=== PATIENT | male | born 1955 ===

== ENCOUNTER 2016-11-28 11:37 | Emergency (ER) | payer BC ==
[2016-11-28 11:58] VITALS: BP 112/72
[2016-11-28] MEDS ORDERED: Iopamidol 755 MG/ML 50 ML Bottle IVPUSH ONE (12:00)
[2016-11-28] MEDS ORDERED: Iopamidol 755 Mg/ML 100 ML Bottle IVPUSH ONE (12:00)
[2016-11-28] MEDS ORDERED: Sodium Chloride 0.9% 1,000 ML IV ONE (12:00)
[2016-11-28] MEDS ORDERED: Sodium Chloride 0.9% 100 ML IV SCH (12:00)
[2016-11-28] MEDS ORDERED: Sodium Chloride 0.9% 10 ML Syringe FLUSH ONE (12:00)
[2016-11-28] MEDS ORDERED: Ondansetron 4 MG/2 ML SDV IVPUSH ONE (12:01)
[2016-11-28] MEDS ORDERED: HYDROmorphone 0.5 MG/0.5 ML Syringe IVPUSH ONE (12:01)
--- NOTE | 2016-11-28 12:03 | EDM.PDOC ---
Addendum entered and electronically signed by Migue Gomez MD 12/24/16 03 :37: Addendum entered and electronically signed by Migue Gomez MD 12/13/16 03 :52: Addendum entered and electronically signed by Migue Gomez MD 11/28/16 19 :18: Original Note: ED HPI GENERAL MEDICAL PROBLEM - General Chief Complaint: Abdominal Pain Stated Complaint: [facility] Time Seen by Provider: 11/28/16 11:57 Source of Information: Reports: Patient History Limitations: Reports: No Limitations - History of Present Illness INITIAL COMMENTS - FREE TEXT/NARRATIVE: 61-year-old male brought to the ED per [facility] helicopter with severe abdominal pain radiating slightly to his lower back. Patient has a history of recent endograft placement in the lower aorta because of abdominal aortic aneurysm as well as stenting of his femoral arteries to reduce supply blood to his legs. Concern by paramedics was that he may have a ruptured aortic aneurysm. However his vital signs showed his BP to be 140-170 systolic. He received 50 g of fentanyl intravenously which brought his pressure down to the 140 systolic range en route to the hospital. Patient reports that he developed nausea and vomiting this morning. He had a sandwich for breakfast and it came right back up. Pain shortly after this. Patient is a type II diabetic for greater than 5 years and is on medication for this. Does not take insulin. Breath smells of ketones. Paramedics indicated that his blood sugar registered greater than 400 on their meter. It measures greater than 400 and are meter as well. Patient was taken to the CT suite where a CT angiogram of the aorta was completed. It reveals no leakage of aortic aneurysm in the endograft is just below the renal arteries. No abnormalities were appreciated on abdominal CT.Gallstones were appreciated. Onset: Today (He reports he felt pretty good yesterday.) Onset Date: 11/28/16 Onset Time: 07:35 Duration: Hour(s): Location: Reports: Abdomen (Abdominal pain with nausea and vomiting 1 this morning. Emesis was mostly his food that he had just eaten and bile salts. No blood.) Quality: Reports: Ache, Pressure Severity: Moderate Improves with: Reports: Medication (Fentanyl helped take away some of the pain.) Worsens with: Reports: Eating Context: Denies: Activity, Exercise, Lifting, Sick Contact, Trauma, Other Associated Symptoms: Reports: Loss of Appetite, Malaise, Nausea/Vomiting, Shortness of Breath. 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 (see below) (Received fentanyl 50 g IV en route to the hospital by paramedics.) Bilateral Lower Abdomen Pain Score (Numeric/FACES): 7 - Related Data Allergies Allergy/AdvReac Type Severity Reaction Status Date / Time No Known Allergies Allergy Verified 11/28/16 11:58 Home Meds: Home Meds Aspirin 81 mg PO BRK 11/28/16 [History] Canagliflozin [Invokana] 100 mg PO DAILY 11/28/16 [History] Cholecalciferol (Vitamin D3) [Vitamin D3] 2,000 unit PO DAILY 11/28/16 [History] Clopidogrel [Plavix] 75 mg PO DAILY 11/28/16 [History] Diltiazem HCl [Diltiazem ER] 120 mg PO DAILY 11/28/16 [History] Fish Oil/Meeker-3 Fatty Acids [Fish Oil 1,000 MG] 1 cap PO BID 11/28/16 [History] Gabapentin [Neurontin] 600 mg PO TID 11/28/16 [History] Glimepiride [Amaryl] 2 mg PO BID 11/28/16 [History] Omeprazole 20 mg PO BIDAC 11/28/16 [History] Venlafaxine HCl [Venlafaxine ER] 75 mg PO DAILY 11/28/16 [History] Venlafaxine HCl [Venlafaxine ER] 150 mg PO DAILY 11/28/16 [History] metFORMIN [Glucophage] 1,000 mg PO BIDMEALS 11/28/16 [History] Past Medical History Cardiovascular History: Reports: Aneurysm (Has no nondilated aortic aneurysm and recently underwent endograft placement below the renal arteries as well as bypass of the femoral arteries with stenting. He states that both legs now give out instead of just one leg when he walks. He can walk only about 50 feet before his legs tire and give out. Severe claudication), Bypass, CAD, Heart Failure, High Cholesterol, Hypertension, PVD (Severe.), SOB on Exertion (Has COPD.) Respiratory History: Reports: COPD Genitourinary History: Reports: BPH Musculoskeletal History: Reports: Back Pain, Chronic Endocrine/Metabolic History: Reports: Diabetes, Type II (Type II diabetic for around 9 years. Has been on oral meds for this. Does not check his blood sugars very regularly. I not controlled.) - Past Surgical History Cardiovascular Surgical History: Reports: Aneurysm (But he states he is not much better in this regard. Endograft placement because of abdominal aortic aneurysm. Is also had stenting of the femoral arteries bilaterally to try and improve blood flow to his legs) ED ROS GENERAL - Review of Systems Review Of Systems: See Below Constitutional: Reports: Malaise, Weakness, Fatigue, Decreased Appetite, Weight Loss. Denies: Fever, Chills HEENT: Reports: Vision Change (Vision is blurry.) Respiratory: Reports: Shortness of Breath, Wheezing (Chronically.), Cough. Denies: Pleuritic Chest Pain ( Facial.) Cardiovascular: Reports: Blood Pressure Problem, Claudication (Severe claudication both lower extremities even since femoral artery stenting. States he can walk about 50 feet), Dyspnea on Exertion. Denies: Chest Pain (Usually nonproductive.), Edema, Lightheadedness, Orthopnea (Chronic hypertension) Endocrine: Reports: Fatigue, High Glucose, Polydypsia, Polyuria GI/Abdominal: Reports: Constipation, Melena (Stools and melena noted been black and tarry for the last 2 days.), Nausea, Vomiting (Vomited once this morning after trying to eat a sandwich) : Reports: Frequency, Other Musculoskeletal: Reports: Back Pain (Nocturia 4), Leg Pain Skin: Reports: Bruising (Bruises easily.) Neurological: Reports: Difficulty Walking (In his legs. Chronically.), Weakness. Denies: Confusion, Dizziness, Headache, Numbness, Tingling Psychiatric: Reports: No Symptoms Hematologic/Lymphatic: Reports: No Symptoms Immunologic: Reports: No Symptoms ED EXAM, GI/ABD - Physical Exam Exam: See Below Exam Limited By: No Limitations General Appearance: Alert, WD/WN, No Apparent Distress, Other (Campus encounter.) Eyes: Bilateral: Normal Appearance (No jaundice.) Throat/Mouth: Normal Inspection, Normal Oropharynx, Other (Tongue is very dry and coated.) Head: Atraumatic, Normocephalic Neck: Normal Inspection, Supple, Non-Tender, Full Range of Motion, Limited Range of Motion (Bilaterally.), Tender Lateral. No: Carotid Bruit, Lymphadenopathy (L), Lymphadenopathy (R) Respiratory/Chest: Respiratory Distress (Mild tachypnea 22-24/m.), Decreased Breath Sounds (Rest is diminished to the posterior 25% of lung weber with occasional expiratory wheezes.), Wheezing. No: Rales Cardiovascular: Regular Rate, Rhythm, No Edema, No Gallop, No Murmur, No Rub, Tachycardia (10 6/m). No: Normal Peripheral Pulses GI/Abdominal Exam: Soft, Non-Tender, No Organomegaly (Hypoactive bowel sounds.) , No Distention, No Abnormal Bruit, Abnormal Bowel Sounds, Other (Male) Exam: No Hernia (No tenderness.), Other (Has evidence of stenting in both inguinal areas were surgical procedures were performed.) Back Exam: Normal Inspection, Decreased Range of Motion. No: Full Range of Motion, CVA Tenderness (L), CVA Tenderness (R) Extremities: Normal Range of Motion, Non-Tender, No Pedal Edema, Other Neurological: Alert, Oriented, CN II-XII Intact, Normal Cognition Psychiatric: Normal Affect, Anxious (Mildly anxious about) Skin Exam: Warm, Dry ( recent travel to the ED per ambulance per helicopter.), Intact, Normal Color, No Rash EKG INTERPRETATION EKG Date: 11/28/16 Time: 11:55 Rhythm: NSR Rate (Beats/Min): 98 [place]: Normal P-Wave: Enlarged (Consider left atrial hypertrophy.) QRS: Other (Left ventricular hypertrophy pattern with strain.) ST-T: Depressed (V4 to V6. This appears to be a strain pattern her repolarization abnormality related to left ventricular hypertrophy pattern. Cannot rule out ischemia however.) QT: Normal EKG Interpretation Comments: Abnormal ECG. Course - Vital Signs Last Recorded V/S: Last Vital Signs Temp 37.4 C 11/28/16 11:54 Pulse 100 11/28/16 11:54 Resp 22 H 11/28/16 11:54 BP 112/72 11/28/16 11:54 Pulse Ox 94 L 11/28/16 11:54 - Orders/Labs/Meds Orders: Active Orders 24 hr Category Date Time Status Blood Glucose Check, Bedside [RC] ONETIME Care 11/28/16 11:59 Active EKG Documentation Completion [RC] STAT Care 11/28/16 11:58 Active Chest 1V Frontal [CR] Stat Exams 11/28/16 11:58 Taken CULTURE BLOOD [BC] Stat Lab 11/28/16 12:19 Received CULTURE BLOOD [BC] Stat Lab 11/28/16 12:32 Received PATIENT RETYPE [BBK] Stat Lab 11/28/16 12:32 Results TYPE AND SCREEN [BBK] Stat Lab 11/28/16 12:32 Results URINALYSIS W/MICROSCOPIC [UA W/MICROSCOPIC] [URIN] Stat Lab 11/28/16 11:58 Uncollected Insulin Regular, Human [HumuLIN R] 100 unit Med 11/28/16 13:00 Active Sodium Chloride 0.9% [Normal Saline] 99 ml IV TITRATE Nitroglycerin/D5W [Nitroglycerin 25 MG/D5W 250 ML] Med 11/28/16 13:30 Active 25 mg in 250 ml IV ASDIRECTED Sodium Chloride 0.9% [Normal Saline] 100 ml Med 11/28/16 12:00 Active IV ASDIRECTED Blood Culture x2 Reflex Set [OM.PC] Stat Oth 11/28/16 11:58 Ordered Medication Orders Sodium Chloride (Normal Saline) 100 mls @ 60 mls/hr IV ASDIRECTED STORM Last Admin: 11/28/16 11:46 Dose: 60 mls/hr Insulin Human Regular 100 unit (/ Sodium Chloride) 100 mls @ 2 mls/hr IV TITRATE STORM PRN Reason: 2 UNIT/HR Last Admin: 11/28/16 13:09 Dose: 2 unit/hr, 2 mls/hr Nitroglycerin/Dextrose (Nitroglycerin 25 Mg/D5w 250 Ml) 25 mg in 250 mls @ 6 mls/hr IV ASDIRECTED STORM PRN Reason: 10 MCG/MIN Labs: Laboratory Tests 11/28/16 11/28/16 11/28/16 Range/Units 11:56 11:56 11:56 WBC 18.90 H (4.23-9.07) K/mm3 RBC 4.13 L (4.63-6.08) M/mm3 Hgb 6.8 L* (13.7-17.5) gm/L Hct 25.9 L (40.1-51.0) % MCV 62.7 L (79.0-92.2) fl MCH 16.5 L (25.7-32.2) pg MCHC 26.3 L (32.2-35.5) g/dl RDW Std Deviation 45.1 H (35.1-43.9) fL Plt Count 291 (163-337) K/mm3 MPV 9.8 (9.4-12.3) fl Neutrophils % (Manual) 92 H (40-60) % Band Neutrophils % 0 (0-10) % Lymphocytes % (Manual) 4 L (20-40) % Atypical Lymphs % 0 % Monocytes % (Manual) 4 (2-10) % Eosinophils % (Manual) 0 L (0.8-7.0) % Basophils % (Manual) 0 L (0.2-1.2) Platelet Estimate Adequate Hypochromasia Moderate Poikilocytosis 1+ slight Anisocytosis Moderate Microcytosis Moderate Tear Drop Cells Few Ovalocytes Pocket Maker RBC Morph Comment Abnormal PT 11.5 (8.0-13.0) SECONDS INR 1.05 Sodium 133 L (136-145) mEq/L Potassium 4.3 (3.5-5.1) mEq/L Chloride 100 (98-107) mEq/L Carbon Dioxide 22 (21-32) mEq/L Anion Gap 15.3 H (5-15) BUN 25 H (7-18) mg/dL Creatinine 1.3 (0.7-1.3) mg/dL Est Cr Clr Drug Dosing 51.68 mL/min Estimated GFR (MDRD) 56 (>60) mL/min BUN/Creatinine Ratio 19.2 H (14-18) Glucose 472 H (80-115) mg/dL POC Glucose (80-115) mg/dL Hemoglobin A1c (4.50-6.20) % Serum Osmolality 322 H (280-300) mosm/kg Calcium 8.2 L (8.5-10.1) mg/dL Magnesium 2.1 (1.8-2.4) mg/dl Total Bilirubin 0.3 (0.2-1.0) mg/dL AST 34 (15-37) U/L ALT 19 (16-63) U/L Alkaline Phosphatase 93 (46-116) U/L CK-MB (CK-2) 10.6 H (0-3.6) ng/ml Troponin I 3.414 H* (0.00-0.056) ng/mL C-Reactive Protein 0.4 (<1.0) mg/dL NT-Pro-B Natriuret Pep 1617 H (0-125) pg/mL Total Protein 6.5 (6.4-8.2) g/dl Albumin 3.0 L (3.4-5.0) g/dl Globulin 3.5 gm/dL Albumin/Globulin Ratio 0.9 L (1-2) Ketones (0.0-0.3) mM Blood Type Gel Antibody Screen 11/28/16 11/28/16 11/28/16 Range/Units 11:56 11:56 12:32 WBC (4.23-9.07) K/mm3 RBC (4.63-6.08) M/mm3 Hgb (13.7-17.5) gm/L Hct (40.1-51.0) % MCV (79.0-92.2) fl MCH (25.7-32.2) pg MCHC (32.2-35.5) g/dl RDW Std Deviation (35.1-43.9) fL Plt Count (163-337) K/mm3 MPV (9.4-12.3) fl Neutrophils % (Manual) (40-60) % Band Neutrophils % (0-10) % Lymphocytes % (Manual) (20-40) % Atypical Lymphs % % Monocytes % (Manual) (2-10) % Eosinophils % (Manual) (0.8-7.0) % Basophils % (Manual) (0.2-1.2) Platelet Estimate Hypochromasia Poikilocytosis Anisocytosis Microcytosis Tear Drop Cells Ovalocytes RBC Morph Comment PT (8.0-13.0) SECONDS INR Sodium (136-145) mEq/L Potassium (3.5-5.1) mEq/L Chloride (98-107) mEq/L Carbon Dioxide (21-32) mEq/L Anion Gap (5-15) BUN (7-18) mg/dL Creatinine (0.7-1.3) mg/dL Est Cr Clr Drug Dosing mL/min Estimated GFR (MDRD) (>60) mL/min BUN/Creatinine Ratio (14-18) Glucose (80-115) mg/dL POC Glucose (80-115) mg/dL Hemoglobin A1c 10.70 H (4.50-6.20) % Serum Osmolality (280-300) mosm/kg Calcium (8.5-10.1) mg/dL Magnesium (1.8-2.4) mg/dl Total Bilirubin (0.2-1.0) mg/dL AST (15-37) U/L ALT (16-63) U/L Alkaline Phosphatase (46-116) U/L CK-MB (CK-2) (0-3.6) ng/ml Troponin I (0.00-0.056) ng/mL C-Reactive Protein (<1.0) mg/dL NT-Pro-B Natriuret Pep (0-125) pg/mL Total Protein (6.4-8.2) g/dl Albumin (3.4-5.0) g/dl Globulin gm/dL Albumin/Globulin Ratio (1-2) Ketones 0.6 (0.0-0.3) mM Blood Type O POSITIVE Gel Antibody Screen Negative 11/28/16 Range/Units 13:27 WBC (4.23-9.07) K/mm3 RBC (4.63-6.08) M/mm3 Hgb (13.7-17.5) gm/L Hct (40.1-51.0) % MCV (79.0-92.2) fl MCH (25.7-32.2) pg MCHC (32.2-35.5) g/dl RDW Std Deviation (35.1-43.9) fL Plt Count (163-337) K/mm3 MPV (9.4-12.3) fl Neutrophils % (Manual) (40-60) % Band Neutrophils % (0-10) % Lymphocytes % (Manual) (20-40) % Atypical Lymphs % % Monocytes % (Manual) (2-10) % Eosinophils % (Manual) (0.8-7.0) % Basophils % (Manual) (0.2-1.2) Platelet Estimate Hypochromasia Poikilocytosis Anisocytosis Microcytosis Tear Drop Cells Ovalocytes RBC Morph Comment PT (8.0-13.0) SECONDS INR Sodium (136-145) mEq/L Potassium (3.5-5.1) mEq/L Chloride (98-107) mEq/L Carbon Dioxide (21-32) mEq/L Anion Gap (5-15) BUN (7-18) mg/dL Creatinine (0.7-1.3) mg/dL Est Cr Clr Drug Dosing mL/min Estimated GFR (MDRD) (>60) mL/min BUN/Creatinine Ratio (14-18) Glucose (80-115) mg/dL POC Glucose 176 H (80-115) mg/dL Hemoglobin A1c (4.50-6.20) % Serum Osmolality (280-300) mosm/kg Calcium (8.5-10.1) mg/dL Magnesium (1.8-2.4) mg/dl Total Bilirubin (0.2-1.0) mg/dL AST (15-37) U/L ALT (16-63) U/L Alkaline Phosphatase (46-116) U/L CK-MB (CK-2) (0-3.6) ng/ml Troponin I (0.00-0.056) ng/mL C-Reactive Protein (<1.0) mg/dL NT-Pro-B Natriuret Pep (0-125) pg/mL Total Protein (6.4-8.2) g/dl Albumin (3.4-5.0) g/dl Globulin gm/dL Albumin/Globulin Ratio (1-2) Ketones (0.0-0.3) mM Blood Type Gel Antibody Screen Meds: Medications Generic Name Dose Route Start Last Admin Trade Name Freq PRN Reason Stop Dose Admin Sodium Chloride 100 mls @ 60 mls/hr 11/28/16 12:00 11/28/16 11:46 Normal Saline IV 60 mls/hr ASDIRECTED STORM Administration Insulin Human Regular 100 unit 100 mls @ 2 mls/hr 11/28/16 13:00 11/28/16 13: 09 / Sodium Chloride IV 2 unit/hr TITRATE STORM 2 mls/hr 2 UNIT/HR Administration Nitroglycerin/Dextrose 25 mg in 250 mls @ 6 mls/hr 11/28/16 13:30 Nitroglycerin 25 Mg/D5w 250 Ml IV ASDIRECTED STORM 10 MCG/MIN Discontinued Medications Generic Name Dose Route Start Last Admin Trade Name Freq PRN Reason Stop Dose Admin Aspirin 324 mg 11/28/16 12:51 11/28/16 12:59 Aspirin PO 11/28/16 12:52 324 mg ONETIME ONE Administration Furosemide 40 mg 11/28/16 12:56 11/28/16 13:16 Lasix IVPUSH 11/28/16 12:57 40 mg NOW ONE Administration Hydromorphone HCl 0.5 mg 11/28/16 12:01 11/28/16 12:46 Dilaudid IVPUSH 11/28/16 12:02 0.5 mg ONETIME ONE Administration Sodium Chloride 1,000 mls @ 999 mls/hr 11/28/16 12:00 11/28/16 12:44 Normal Saline IV 11/28/16 13:00 999 mls/hr ONETIME ONE Administration Nitroglycerin/Dextrose Confirm 11/28/16 13:27 Nitroglycerin 25 Mg/D5w 250 Ml Administered 11/28/16 13:28 Dose 25 mg in 250 mls @ as directed .ROUTE .STK-MED ONE Insulin Human Regular 8 unit 11/28/16 12:49 11/28/16 12:59 Humulin R IVPUSH 11/28/16 12:50 8 units ONETIME ONE Administration Protocol Iopamidol 100 ml 11/28/16 12:00 11/28/16 11:45 Isovue-370 (76%) IVPUSH 11/28/16 12:01 100 ml ONETIME ONE Administration Iopamidol 20 ml 11/28/16 12:00 11/28/16 11:45 Isovue-370 (76%) IVPUSH 11/28/16 12:01 20 ml ONETIME ONE Administration Ondansetron HCl 4 mg 11/28/16 12:01 11/28/16 12:45 Zofran IVPUSH 11/28/16 12:02 4 mg ONETIME ONE Administration Sodium Chloride 10 ml 11/28/16 12:00 11/28/16 11:45 Saline Flush FLUSH 11/28/16 12:01 10 ml ONETIME ONE Administration - Radiology Interpretation Free Text/Narrative:: 61-year-old male brought to the ED per helicopter service with concerns about possible ruptured aortic aneurysm due to severe complaint of abdominal pain rating 2 to his back. He is known to have a aortic aneurysm with recent endovascular repair and bilateral femoral stenting to improve blood flow to his lower extremities due to severe peripheral vascular disease. He was taken immediately to the CT suite where a CT angiogram was done and reveals a abdominal aortic aneurysm but there is no rupture or extravasation of contrast. The endovascular shunt is just below the renal arteries. No other abnormalities were appreciated on abdominal CT. He smells of ketones in his blood sugars greater than 400 indicating his type 2 diabetes is in poor control. He reports that he takes his medicine but he has does not check his sugars very often. I will wait for his total blood sugar to come back before starting any insulin. IV will be normal saline at open to wash contrast out of his system hopefully. His kidney function is likely less than desirable for contrast media. - Re-Assessments/Exams Free Text/Narrative Re-Assessment/Exam: 11/28/16 12:29 chest x-ray reveals hyperinflated lung weber bilaterally which show fibrotic pattern. Cardiac silhouette is essentially normal. 11/28/16 12:52 lab called over and identified his blood sugar to be 472. Pollen is elevated at 0.3414 indicating recent myocardial infarction. I will give him 4 baby aspirin chewed. But with a hemoglobin of 6.8 I'm reluctant to start him on heparin until we know for sure he does not have an active GI bleed. I also do not have a med list back on him to anticoagulation therapy.We' ll await his serum ketones and osmolality and then make a decision as to which hospital he wishes to travel to in [place]. 11/28/16 13:03 patient does admit that his stools been black and tarry-looking the last 2 days. He's been having some discomfort in the pit of his stomach. Perhaps mild anterior chest discomfort but no crushing substernal chest pain to suggest myocardial infarction. He reports he has 2 stents in his heart and he is still taking Plavix. Takes aspirin daily. He takes Prilosec 20 mg twice daily as well. He had the stents placed in his heart at [facility] in [place] otherwise a lot of the work is been done on him in my not. He prefers to travel to [facility] at this time. Current BP is 124/69 heart rate is 98 in sinus. O2 sats 95%. Will be started on nitro drip at 10 mcg/m. IV will be reduced to 100 mils per hour as he is in heart failure. He has currently received almost a liter of normal saline 11/28/16 13:[address] Isabel -- ED edwin and she has accepted care. He will be flown to [facility] per helicopter. 11/28/16 13:28: Blood repeat blood sugar is down to 178. Therefore insulin drip was discontinued. Hemoglobin A1c is 10.70 indicating very poor blood sugar control as expected. I am osmolality and ketone levels are not yet back. 11/28/16 14:25 serum osmolality was only mildly elevated at 322. Serum ketones mildly elevated at 0.6. Departure - Departure Time of Disposition: 13:15 Disposition: DC/Tfer to Acute Hospital 02 Condition: Serious Clinical Impression: GI bleed Qualifiers: GI bleed type/associated pathology: melena Qualified Code(s): K92.1 - Melena Anemia Qualifiers: Iron deficiency anemia type: chronic blood loss Acute myocardial infarction Qualifiers: Myocardial infarction ST status: non-ST elevation myocardial infarction Qualified Code(s): I21.4 - Non-ST elevation (NSTEMI) myocardial infarction Uncontrolled type 2 diabetes mellitus Qualifiers: Diabetes mellitus complication status: with circulatory complication - Discharge Information Referrals: Alayna Burgos [employer] [Primary Care Provider] - Forms: ED Department Discharge Additional Instructions: Patient transferred to [facility] per helicopter due to multiple medical problems. History of a recent GI bleed with hemoglobin of 6.8 and melena stool. He notes black tarry stools 48 hours. He presents with severe epigastric pain relief through to his mid back which is interpreted as likely from myocardial infarction. apical infarct? Elevated blood sugar at 472 with a glycosylated protein of 10.7 indicating poorly controlled type 2 diabetes. - My Orders Last 24 Hours: My Active Orders 11/28/16 11:58 EKG Documentation Completion [RC] STAT Chest 1V Frontal [CR] Stat URINALYSIS W/MICROSCOPIC [UA W/MICROSCOPIC] [URIN] Stat Blood Culture x2 Reflex Set [OM.PC] Stat 11/28/16 11:59 Blood Glucose Check, Bedside [RC] ONETIME 11/28/16 12:00 Sodium Chloride 0.9% [Normal Saline] 100 ml IV ASDIRECTED 11/28/16 12:19 CULTURE BLOOD [BC] Stat 11/28/16 12:32 CULTURE BLOOD [BC] Stat PATIENT RETYPE [BBK] Stat TYPE AND SCREEN [BBK] Stat 11/28/16 13:00 Insulin Regular, Human [HumuLIN R] 100 unit Sodium Chloride 0.9% [Normal Saline] 99 ml IV TITRATE 11/28/16 13:30 Nitroglycerin/D5W [Nitroglycerin 25 MG/D5W 250 ML] 25 mg in 250 ml IV ASDIRECTED - Assessment/Plan Last 24 Hours: My Active Orders 11/28/16 11:58 EKG Documentation Completion [RC] STAT Chest 1V Frontal [CR] Stat URINALYSIS W/MICROSCOPIC [UA W/MICROSCOPIC] [URIN] Stat Blood Culture x2 Reflex Set [OM.PC] Stat 11/28/16 11:59 Blood Glucose Check, Bedside [RC] ONETIME 11/28/16 12:00 Sodium Chloride 0.9% [Normal Saline] 100 ml IV ASDIRECTED 11/28/16 12:19 CULTURE BLOOD [BC] Stat 11/28/16 12:32 CULTURE BLOOD [BC] Stat PATIENT RETYPE [BBK] Stat TYPE AND SCREEN [BBK] Stat 11/28/16 13:00 Insulin Regular, Human [HumuLIN R] 100 unit Sodium Chloride 0.9% [Normal Saline] 99 ml IV TITRATE 11/28/16 13:30 Nitroglycerin/D5W [Nitroglycerin 25 MG/D5W 250 ML] 25 mg in 250 ml IV ASDIRECTED
[2016-11-28] MEDS ORDERED: Insulin Regular, Human 100 Units/ML 3 ML Vial IVPUSH ONE (12:49)
[2016-11-28] MEDS ORDERED: Aspirin 81 MG Tab.Chew PO ONE (12:51)
[2016-11-28] MEDS ORDERED: Furosemide 40 MG/4 ML VIAL IVPUSH ONE (12:56)
--- NOTE | 2016-11-28 13:05 | CT ---
CT chest Technique: Multiple axial sections were obtained from above the lung apices inferiorly through the lung bases. Intravenous contrast was utilized. Comparison: No prior chest imaging. Findings: Aorta shows atherosclerotic change without aneurysm or dissection. Coronary artery calcification is seen. Mediastinum and hilar regions show no adenopathy or mass. No axillary adenopathy is seen. No pericardial thickening is seen. Lungs are clear. No pleural effusions or pneumothorax is seen. Bone window settings show scattered degenerative change within the spine. Impression: 1. Atherosclerotic change within the aorta. No aneurysm or dissection is seen. 2. Coronary artery calcification. 3. Other incidental findings. Diagnostic code #2 CT abdomen and pelvis Technique: Multiple axial sections were obtained from above the dome of the diaphragm inferiorly through the pubic symphysis. Intravenous contrast was utilized. No oral contrast has been given. Delayed images were also obtained through the abdomen. Findings: Aorta shows aneurysmal dilatation. This aneurysmal dilatation contains an intraluminal stent. No contrast is seen outside the stent. No retroperitoneal adenopathy is seen. No mesenteric abnormalities are seen. Liver shows no focal abnormality. Spleen appears unremarkable. Kidneys show symmetric contrast enhancement without hydronephrosis or mass. Pancreas is within normal limits. No pelvic mass or adenopathy is seen. Mild increased stool is noted within the colon. Bone window settings were reviewed which shows minimal degenerative change within the lumbar spine. Impression: 1. Mild increased stool within the colon. 2. Intact stent within an abdominal aortic aneurysm without evidence of stent leakage. 3. No additional abnormality is seen on CT study of the abdomen and pelvis. Diagnostic code #2
[2016-11-28] MEDS ORDERED: Nitroglycerin/D5W 25 MG/250 ML BOTTLE ONE (13:27)
[2016-11-28] MEDS ORDERED: Nitroglycerin/D5W 25 MG/250 ML BOTTLE IV SCH (13:30)
--- NOTE | 2016-12-02 08:39 | CR ---
Chest: Frontal view of the chest was obtained. Comparison: Prior chest CT of 11/28/16 is available. Heart size and mediastinum are within normal limits. Lungs are clear. Bony structures show degenerative change within both shoulders. Mild degenerative spurring is seen within the spine. Impression: 1. Nothing acute is appreciated on frontal chest x-ray. Diagnostic code #2
== END 2016-11-28 13:43 ==
LOC: JD.ED 11:37
DX: K92.1 Melena (principal); I21.4 Non-ST elevation (NSTEMI) myocardial infarction; E11.9 Type 2 diabetes mellitus without complications; D50.0 Iron deficiency anemia secondary to blood loss (chronic); J44.9 Chronic obstructive pulmonary disease, unspecified; Z79.4 Long term (current) use of insulin; Z79.84 Long term (current) use of oral hypoglycemic drugs; Z79.899 Other long term (current) drug therapy; Z79.82 Long term (current) use of aspirin
CPT/HCPCS: 36415; 71010; 71260; 74177; 80053; 82009; 82553; 82962; 83036; 83735; 83880; 83930; 84484; 85025; 85610; 86140; 86850; 86900; 86901; 87040; 93005; 96361; 96365; 96374; 96375; 96376; 99285; A9270; J1170; J1817; J1940; J2405; J7030; J7040; J7050; Q9967